=== PATIENT | male | born 1960 | race Caucasian/White ===

== ENCOUNTER 2021-03-14 13:09 | Outpatient (CLI) | payer MEDICARE, SELFPAY ==
--- NOTE | 2021-03-14 13:36 | PM.MISC ---
Miscellaneous Note Purpose of Documentation: Monoclonal Antibody Infusion visit Note: Patient arrive for MCA. Saturation
[2021-03-14 14:31] VITALS: BP 127/77; PULSE 80; RESP 18; TEMP 37.1; O2SAT 92
[2021-03-14 15:27] VITALS: BP 127/69; PULSE 89; RESP 18; TEMP 37.4; O2SAT 92
== END 2021-03-14 15:39 | disposition home or self-care (01) ==
PROVIDERS: PCP Nurse Practitioner Family; Visit Provider Nurse Practitioner Family
DX: U07.1 COVID-19 (principal)
CPT/HCPCS: 96365

== ENCOUNTER → 2021-10-19 14:20 | Outpatient (BNVA) | payer MEDICARE, SELFPAY | PROVIDERS: PCP Nurse Practitioner Family; Visit Provider Nurse Practitioner Family | DX: M25.511 Pain in right shoulder (principal) | CPT/HCPCS: 73030 ==

== ENCOUNTER 2021-11-06 11:15 | Outpatient (CLI) | payer MEDICARE, SELFPAY ==
--- NOTE | 2021-11-06 11:27 | CT_ITS ---
WS: [id number] LDCT LUNG CANCER SCREENING HISTORY: HX OF TOBACCO USE TECHNIQUE: Axial imaging performed from the apices to 1 cm below the costophrenic angles. Coronal and sagittal reformats are submitted with axial MIP series. All CT scans at [facility] use at least one of these dose optimization techniques: automated exposure control; mA and/or kV adjustment per patient size (includes targeted exams where dose is matched to clinical indication); or iterativ e reconstruction. DLP: 87.79 mGy.cm DIvol: Mean CTDIvol: 1.60 (mGy) COMPARISON: 05/23/2019 Diagnostic quality: Satisfactory Lung Nodules: No new or increasing size of pulmonary nodules since 09/23/2018. Bilateral lower lobe pu lmonary nodules are present with the largest measuring 5 mm. Majority of these nodules are calcified. There are additional micronodules in the upper lobes bilaterally. Lungs: Hyperexpanded from emphysema. Heart: Normal size. No cardiomegaly. There are a few mild calcified plaques within the coronary arter ies. Other findings: Mild atherosclerosis aorta. Mildly enlarged pulmonary artery. Benign calcified bilate ral hilar lymph nodes. CT/CT lung screening [id number] IMPRESSION: LUNG-RADS: 2-Benign Appearance or Behavior FOLLOW UP: 12 Month: Continue annual screening with LDCT OTHER FINDINGS (S MODIFIER): None.
== END 2021-11-06 11:16 | disposition home or self-care (01) ==
LOC: RAD 11:17
PROVIDERS: PCP Nurse Practitioner Family; Visit Provider Nurse Practitioner Family
DX: Z12.2 Encounter for screening for malignant neoplasm of respiratory organs (principal); Z87.891 Personal history of nicotine dependence; I70.0 Atherosclerosis of aorta
CPT/HCPCS: 71271

== ENCOUNTER → 2021-11-21 13:52 | Outpatient (BNVA) | payer MEDICARE, SELFPAY | PROVIDERS: PCP Nurse Practitioner Family; Referring Provider Nurse Practitioner Family; Visit Provider Orthopaedic Surgery | DX: M75.01 Adhesive capsulitis of right shoulder (principal); Z87.891 Personal history of nicotine dependence | CPT/HCPCS: 73030; 99203 ==